=== PATIENT | male | born 1945 | race Caucasian/White ===

== ENCOUNTER 2017-01-07 07:23 | Emergency (ER) | payer MEDICARE, OTHER ==
--- NOTE | 2017-01-07 08:11 | ERNOTE ---
Medical Problem HPI - Narrative Date of Service: 01/07/17 - General Chief Complaint: Foreign Body Time Seen by Provider: 01/07/17 08:10 Source: patient Exam Limitations: no limitations - Immun/Allergies/Home Medications Immunizations: IMMUNIZATION HX Immunizations Up to Date Yes History of Influenza Vaccine No Hx Pneumococcal Vaccination No Allergies/Adverse Reactions: Allergies No Known Allergies Allergy (Verified 01/07/17 07:35) Home Medications: HOME MEDICATIONS Amiodarone HCl [Cordarone] 200 mg PO DAILY 03/23/12 [Last Taken Unknown] Atorvastatin Calcium 20 mg PO HS 03/23/12 [Last Taken Unknown] Metformin HCl 1,000 mg PO BID 03/23/12 [Last Taken Unknown] glipiZIDE [Glipizide ER] 5 mg PO DAILY 03/23/12 [Last Taken Unknown] Dabigatran Etexilate Mesylate [Pradaxa] 150 mg PO BID 12/18/13 [Last Taken Unknown] Lisinopril [Zestril] 10 mg PO DAILY 12/18/13 [Last Taken Unknown] amLODIPine BESYLATE [Norvasc] 10 mg PO DAILY 12/18/13 [Last Taken Unknown] Cephalexin Monohydrate [Keflex] 500 mg PO QID #40 cap 01/07/17 [Last Taken Unknown] Tramadol HCl [Rybix Odt] 50 mg PO QID 3 Days #14 tab.rapdis 01/07/17 [Last Taken Unknown] - History of Present History Narrative: Yest morning the pt was getting out of bed when he felt a toothpick enter the ball of his foot. His attempted to remove it. Pt walked on the foot all day yest. He presents today for removal of toothpick from his R foot. Pt has a h/o diabetes. Date (Duration): 01/06/17 Timing: constant Modifying Factors - (Improves): Present: rest Modifying Factors - (Worsens): Present: movement Review of Systems - Review of Systems Constitutional: Present: no symptoms reported EYE: Present: no symptoms reported ENT: Present: no symptoms reported Respiratory: Present: no symptoms reported Cardiology: Present: no symptoms reported Gastrointestinal/Abdominal: Present: no symptoms reported Genitourinary: Present: no symptoms reported Musculoskeletal: Present: no symptoms reported Skin: Present: no symptoms reported Neurological: Present: no symptoms reported Endocrine: Present: no symptoms reported Hematologic/Lymphatic: Present: no symptoms reported Psych: Present: no symptoms reported All Other Systems: All systems neg except as marked - Patient's Past Medical History Patient History - Medical: Diabetes Type 2 Patient History - Cardiac/Respiratory: Atrial Fibrillation, Cardiac Arrest, Coronary Heart Disease, CHF, Hypertension, Hyperlipidemia, Myocardial Infarction Patient History - Cancer: No Hx of Cancer Patient History - Surgical Procedures: Appendectomy Patient History - Other: None - Social History Living Situations: home Abuse History: No History of abuse Psych History: No pertinent hx Smoking Status: Former smoker Alcohol Use: occasionally Drug Use: none - Immunizations Immunizations Up to Date: Yes Hx Pneumococcal Vaccination: No History of Influenza Vaccine: No Physical Exam - Physical Exam General Appearance: Present: alert, no apparent distress Head Exam: Present: normal inspection Neck: Present: normal inspection, nontender, supple, full range of motion Respiratory: Present: no respiratory distress Extremity Exam: Present: other - Pt has a 0.5 cm area on the ball of the r foot. Appears to be an entrance wound. Neurological Exam: Present: alert, oriented, normal mood/affect ED Progress - Vital Signs Vital Signs: Vital Signs 01/07/17 07:33 Temperature 36.7 C Pulse Rate 43 L Respiratory 14 Rate Blood Pressure 147/63 O2 Sat by Pulse 96 Oximetry - Progress/Reassessment Chief Complaint: Foreign Body Procedures Date and Time: 01/07/17 09:14 anesthesia 2% lidocaine 3 ml. area opened with a 10 blade scalpel 1 cm. Explored the wound for FB, then explored for toothpick with US. Unable to detect FB. Plan - Plan Plan: Dr. Flowers came to the ed and explored the r foot for FB/toothpick as well. She was unable to find any. She instructed him to follow up in her office, wash daily with soap and water, keflex 500 mg po qd x 5 days Departure Clinical Impression: Foreign body in foot - Departure Disposition: Home self-care Condition: Good Prescriptions: Cephalexin Monohydrate [Keflex] 500 mg PO QID #40 cap Tramadol HCl [Rybix Odt] 50 mg PO QID 3 Days #14 tab.rapdis
[2017-01-07 11:20] VITALS: BP 140/62
--- NOTE | 2017-01-08 10:11 | CONS ---
- Reason for consultation (1) Foreign body in foot Date of Service: 01/07/17 HPI - General Date of Service: 01/07/17 Narrative: Pt presents to the ED this am following puncture wound to his foot the previous morning. States he was getting out of bed and stepped on a toothpick. His did try to remove any retained toothpick from his foot but was unable to get anything out. They dressed the foot and he proceeded to walk on the foot the remainder of the day, keeping most weight to his heel as the puncture was to the forefoot. Due to increasing pain through the night, they decided to have it looked at and came to the ED. Ultrasound and Xray were completed, xray with possible 4mm retained foreing body just underlying the skin surface. ERP did attempt foreign body removal without success. I was contacted for further recommendations and possible re-attempt at removal. Pt and state that they are unsure how much of the toothpick went in his foot as the ends had already been broken off so it was not a whole toothpick to start. After much discussion, pt would like me to explore the area for any retained materials. Advised that this may cause him more discomfort after anesthesia wears off. States understanding and wishes to proceed. Source: patient Exam Limitations: no limitations - History of Present Illness Timing/Duration: 24 hours Severity: moderate Modifying Factors - (Worsens): Reports: movement Modifying Factors - (Improves): Reports: rest Associated Symptoms: denies symptoms Allergies/Adverse Reactions: Allergies No Known Allergies Allergy (Verified 01/07/17 07:35) Home Medications: Home Medications Medication Instructions Recorded Last Taken Amiodarone HCl [Cordarone] 200 mg PO DAILY 03/23/12 Unknown Atorvastatin Calcium 20 mg PO HS 03/23/12 Unknown Metformin HCl 1,000 mg PO BID 03/23/12 Unknown glipiZIDE [Glipizide ER] 5 mg PO DAILY 03/23/12 Unknown Dabigatran Etexilate Mesylate 150 mg PO BID 12/18/13 Unknown [Pradaxa] Lisinopril [Zestril] 10 mg PO DAILY 12/18/13 Unknown amLODIPine BESYLATE [Norvasc] 10 mg PO DAILY 12/18/13 Unknown - Patient's Past Medical History Patient History - Medical: Diabetes Type 2 Patient History - Cardiac/Respiratory: Atrial Fibrillation, Cardiac Arrest, Coronary Heart Disease, CHF, Hypertension, Hyperlipidemia, Myocardial Infarction Patient History - Cancer: No Hx of Cancer Patient History - Surgical Procedures: Appendectomy Patient History - Other: None - Social History Living Situations: home Abuse History: No History of abuse Psych History: No pertinent hx Smoking Status: Former smoker Alcohol Use: occasionally Drug Use: none - Immunizations Immunizations Up to Date: Yes Hx Pneumococcal Vaccination: No History of Influenza Vaccine: No Review of Systems - Review of Systems Musculoskeletal: Present: Other - right foot pain Skin: Present: Other - puncture wound right foot Physical Examination - Exam Vital Signs: Vital Signs - Last Taken Temp 36.7 C 01/07/17 07:33 Pulse 42 L 01/07/17 11:20 Resp 12 01/07/17 11:20 BP 140/62 01/07/17 11:20 Pulse Ox 100 01/07/17 11:20 O2 Oxygen Delivery Method Room Air Constitutional: Present: Alert, Oriented x3, Cooperative, No distress Cardiovascular/Chest: Present: no edema Peripheral Pulses: dorsalis-pedis (R): 2+ Extremity: Present: other - Right foot pain sub 2nd metatarsal head area. Skin Exam: Present: other - Puncture site to plantar surface of right foot sub 2nd metatarsal head that has been incised by ERP leaving a 1 cm in length opening. Tissue is red, granular, healthy in appearance. Bloody drainage present. No localized SOI. Area is explored, no foreign body found. Appearance: Present: appropriate appearance Eye contact: Present: cooperative Thoughts: Present: normal thought pattern - Assessments/Findings (1) Foreign body in foot Diagnosis(s): Discussed at length with pt/ regarding xray results and potential retained foreign body in his foot. Pt elects to have are explored by me. Area is anesthetized with 5 mL of 0.25% Marcaine without EPI. Plantar foot prepped with betadine solution. A hemostat it utilized to explore puncture site for any remaining retained foreign body. None is found. Wound is flushed with sterile saline and a dry compressive dressing applied, wound left open to drain. Advise placement on ABX, will be done by ERP. Keep foot washed well daily with soap and water. Cover with dry bandaid or gauze and tape if increased drainage present. Wear protective shoegear. Educated on SOI and he is to call immediately should any develop. Pt is to leave for [place] in 2 days. Advise presenting to Urgent Care Clinic with any signs of infection. F/ u in my office upon return from [place]. Problem: Acute Qualifiers: Encounter type: initial encounter Laterality: right Qualified Code(s): S90.851A - Superficial foreign body, right foot, initial encounter
== END 2017-01-07 11:25 | disposition home or self-care (01) ==
LOC: ER 07:23
PROC: 0HCMXZZ Extirpation of Matter from Right Foot Skin, External Approach (ICD-10-PCS; principal; 2017-01-07)
DX: S91.341A Puncture wound with foreign body, right foot, initial encounter (principal); X58.XXXA Exposure to other specified factors, initial encounter; Y93.89 Activity, other specified; Y92.003 Bedroom of unspecified non-institutional (private) residence as the place of occurrence of the external cause; E11.9 Type 2 diabetes mellitus without complications; I48.91 Unspecified atrial fibrillation; Z79.01 Long term (current) use of anticoagulants; I25.2 Old myocardial infarction; I10 Essential (primary) hypertension; E78.5 Hyperlipidemia, unspecified